=== PATIENT | male | born 1975 | race Hispanic/Latino ===

== ENCOUNTER 2024-03-12 18:23 | Emergency (ER) | payer SELFPAY ==
[2024-03-12] MEDS ORDERED: Lidocaine 1% w/Epinephrine 1:100K 20 ML VIAL ONE (19:44)
[2024-03-12] MEDS ORDERED: Clindamycin 150 MG CAP ONE (21:02)
== END 2024-03-12 21:29 | disposition home or self-care (01) ==
LOC: NAV ERS 18:23
DX: L02.213 Cutaneous abscess of chest wall (principal); R07.89 Other chest pain
CPT/HCPCS: 10060